=== PATIENT | female | born 1995 | race Caucasian/White ===

== ENCOUNTER 2017-01-09 20:31 | Emergency (ER) | payer OTHER ==
--- NOTE | 2017-01-10 03:47 | ED CLINICAL REPORT ---
Clinical Report - Physicians/Mid Levels [facility] [address] [place] [place] [address] 01/09/2017 20:32 Patient: MIKIE MAKI Time Seen: 09:44. Arrived- By ambulance. Not in custody. Historian- patient and police. HISTORY OF PRESENT ILLNESS Chief Complaint: BEHAVIOR CHANGE and AGITATED, ANGRY and AGGRESSIVE. This started UNKNOWN ONSET. (Ms Maki [facility] She was severely intoxicated and unable to provide responding officers with the name of a responsible sober alliance party who could assume care of the patient.). The patient was found wandering. Recent alcohol consumption. Has exhibited unusual behavior. No delusions, self-injury inflicted or hallucinations. The symptoms are described as severe. No injury is present. REVIEW OF SYSTEMS No chest pain or pain or abdominal pain or pain. No sore throat or throat, difficulty breathing, fever or difficulty breathing. No black stools, bloody stools or head injury. She has had moderate left ear pain. She has had hearing loss (decreased hearing in L ear). PAST HISTORY ( PROBLEMS: Lifestyle / Substance Problems. Abscess. Boarderline diabetic ADDITIONAL SURGERIES: Oral surgery). SOCIAL HISTORY Heavy alcohol use. 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 ADDITIONAL NOTES The nursing notes have been reviewed. PHYSICAL EXAM Vital Signs: 01/10/2017 04:42 BP: 100/49. HR: 65. RR: 16. O2 saturation: 99%. Pain level now: 0. 01/10/2017 01:52 BP: 104/49. HR: 72. RR: 14. O2 saturation: 96%. Pain level now: 0. 01/09/2017 22:25 BP: 128/88. HR: 60. RR: 16. O2 saturation: 97%. Temp: 98.1 F. Pain level now: 0. 01/09/2017 22:23 BP: 99/54. HR: 112. RR: 18. O2 saturation: 98%. Temp: 98.9 F. Appearance: Alert. (Yelling, screaming and thrashing about). Eyes: Pupils equal, round and reactive to light. Neck: Normal inspection. Neck supple. CVS: Heart sounds normal. Respiratory: Chest nontender. Abdomen: Soft and nontender. Back: No tenderness. Skin: Skin warm. Normal skin color. Extremities: Extremities exhibit normal ROM. No lower extremity edema. Psych / Neuro: The patient exhibits altered thought processes. Denies suicidal thoughts. Patient does not express homicidal thoughts. She does not appear to understand hers illness. Cranial nerves normal (as tested). No motor deficit. No sensory deficit. LABS, X-RAYS, AND EKG Laboratory Tests: Urine: (JESSICA: 01/09/2017 20:45) ( [facility] 01/09/2017 21:27) Final results Test Result Flag Units (Reference) URINE NEGATIVE CBC w Diff: (JESSICA: 01/09/2017 22:20) ( [facility] 01/09/2017 22:28) Final results Test Result Flag Units (Reference) WHITE BLOOD COUNT 7.9 K/uL (4.5-11.5) RED BLOOD COUNT 4.40 M/uL (4.00-5.20) HEMOGLOBIN 12.1 gm/dL (12.0-16.0) HEMATOCRIT 37.1 % (36.0-46.0) MEAN CELL VOLUME 84 fL (80-100) MEAN CORPUSCULAR HGB 28 pg (26-34) MEAN CORPUSCULAR HGB CONC 33 g/dL (31-37) RED CELL DISTRIBUTION WIDTH 16.2 H % (11.6-14.8) PLATELET COUNT 292 K/uL (150-400) NEUTROPHIL % 52.4 % (50-75) LYMPH % 38.1 % (25-40) MONO % 5.4 % (3-14) EOSINOPHIL % 3.5 % (0-4) BASOPHIL % 0.6 % (0-2) CMP: (JESSICA: 01/09/2017 22:20) ( [facility] 01/09/2017 22:40) Final results Test Result Flag Units (Reference) GLUCOSE 110 mg/dL (70-110) BUN 4 L mg/dL (7-18) CREATININE 0.5 L mg/dL (0.6-1.3) Estimated GFR >60 mL/min Estimated GFR- >60 mL/min Note: Persistent reduction over 3 months in eGFR<60 mL/min/1.73 m2 defines CKD. Patients with eGFR values>=60 mL/min/1.73 m2 may also have CKD if evidence ofpersistent proteinuria. Additional information may be foundat www.[email or web address].org. SODIUM 147 H mmol/L (136-145) POTASSIUM 3.6 mmol/L (3.5-5.1) CHLORIDE 111 H mmol/L (98-107) CARBON DIOXIDE 21 mmol/L (21-32) CALCIUM 8.5 mg/dL (8.5-10.1) TOTAL PROTEIN 7.4 g/dL (6.4-8.2) ALBUMIN 3.5 g/dL (3.3-5.0) BILIRUBIN, TOTAL 0.3 mg/dL (0.0-1.0) ALKALINE PHOSPHATASE 79 U/L (46-116) AST (SGOT) 15 U/L (15-37) ALT (SGPT) 20 U/L (12-78) CPK 53 U/L (24-260) ETHYL ALCOHOL 206 H mg/dL (3-10) Urine Drug Screen: (JESSICA: 01/09/2017 20:45) ( [facility] 01/09/2017 21:41) Final results Test Result Flag Units (Reference) AMPHETAMINE/METHAMPHETAMINE NEGATIVE (NEGATIVE) BARBITURATE NEGATIVE (NEGATIVE) BENZODIAZEPINE NEGATIVE (NEGATIVE) CANNABINOID POSITIVE H (NEGATIVE) COCAINE NEGATIVE (NEGATIVE) ECSTASY NEGATIVE (NEGATIVE) METHADONE NEGATIVE (NEGATIVE) OPIATE NEGATIVE (NEGATIVE) The urine drug screen is a qualitative screening test fordrug overdose and abuse. All screen results should beconsidered as presumptive.Drugs screened for are as follows:BenzodiazepinesCocaineAmphetamines/MetamphetaminesTHC (Tetrahydrocannabinol)OpiatesBarbituratesEcstasyMethadonePositive results are unconfirmed. For confirmation, notifythe lab for the specimen to be sent to the reference lab.All confirmations must be performed by a differentmethodology.The ingestion of natural herbal and plant productscontaining Ephedra/Ephedra metabolites can produce in urineone or more substances capable of cross reacting withamphetamine/methamphetamine immunoassays. These testsprovide a preliminary result only. A more specificalternative chemical method must be used to obtain aconfirmed analytical result. . PROGRESS AND PROCEDURES Course of Care: Spoke with Officer Jerel by phone. Mikie's wild thrashing make her a danger to herself and staff so she was restrained in 4 point restraints. 21:53 01/09/17. Diagonal restraints removed. Now in two point restraints 23:29 01/09/17. 3RD BEDSIDE VISIT. Restraints removed Now calm and cooperative. Disposition is a problem. Only acute problem identified is severe alcohol intoxication. No acute psychosis or risk to self beyond substance abuse risks. 02:04 01/10/17. RN states, The patient will need to take bus to [place]. We will let her sober until 0600 when the buses begin running. Disposition: Discharged. Condition: stable. CLINICAL IMPRESSION Serous left otitis media. Alcohol intoxication. INSTRUCTIONS (CONSIDER ALCOHOLISM TREATMENT). (Electronically signed by Jake Adams MD 01/11/2017 9:58)
--- NOTE | 2017-01-10 03:47 | ED NURSING NOTES ---
Clinical Report - Nurses [facility] [address] [place] [address] 01/09/2017 20:32 Patient: MIKIE MCKEON TRIAGE Triage time 2031. Acuity: LEVEL 3. Chief Complaint: DIFFICULTY WALKING, CONFUSION and AGITATED / AGGRESSIVE BEHAVIOR. --22:43 Maikel Kc R.N. 22:23 01/09/17. BP: 99/54. HR: 112. RR: 18. O2 saturation: 98% on room air. Temp: 98.9 F (oral). Pain level now unable to obtain due to patient condition: cannot qualify. Additional comments: Pt is unable to verbalize due to hher condition. --22:43 Maikel Kc R.N. Weight: 75 kg estimated. Height/Length: 63 inches Estimated. BMI: 29.3. --22:23 Maikel Kc R.N. Medications None. --22:37 Maikel Kc R.N. (old chart). --22:43 Maikel Kc R.N. Allergies Sulfa Antibiotics. --22:37 Maikel Kc R.N. History Arrived by EMS. Historian: police and EMS. Unaccompanied. Primary physician (none). ( Found by police at local [facility] lying on the ground and they called EMS and transported her to [facility] for intoxication and altered Mental Status.). This started today. Symptoms still present (Pt is unable to verbalize.). Treatment GARMENT FINISHER: None. SOCIAL HX: Alcohol use. ABUSE ASSESSMENT: No report of abuse. NUTRITIONAL RISK ASSESSMENT: The nutritional risk assessment revealed no deficiencies. FALL RISK ASSESSMENT: Fall risk assessment completed. Risk factors identified include patient impairment of mobility and cognition. FUNCTIONAL ASSESSMENT: The functional assessment could not be obtained due to patient condition. LEARNING NEEDS ASSESSMENT: A learning needs assessment was performed. Factors affecting the patient's ability to learn include cognitive limitations. The learning needs assessment could not be obtained due to the patient's condition. SKIN INTEGRITY ASSESSMENT: Skin integrity risk assessment completed. No skin integrity risk identified. --22:43 Maikel Kc R.N. PROBLEMS: Lifestyle / Substance Problems. Abscess. Boarderline diabetic . --22:41 Maikel Kc R.N. ADDITIONAL SURGERIES: Oral surgery . --22:41 Maikel Kc R.N. Interventions ID band on patient. To treatment room. --22:43 Maikel Kc R.N. PHYSICAL ASSESSMENT Ambulatory to room. (with police escort). GENERAL / NEURO / PSYCH: Decreased awareness. The patient is disoriented to person, place and time. She has had weakness. HEENT: No facial asymmetry noted. Mucous membranes are pink. RESPIRATORY: Respirations not labored. CVS: Cardiac rhythm: sinus tachycardia. Capillary refill less than 2 seconds. GI / : Abdomen soft. SKIN: Skin intact. Skin is warm and dry. Normal skin turgor. ( IV track mckeon (scars) on arms). --22:47 Maikel Kc R.N. NURSING PROGRESS NOTES Patient ID band checked for patient name and birthdate urine collected with return of yellow-colored clear urine; sample sent to lab. Specimen labeled in the presence of the patient. No clean catch urine collected. --20:48 Dinora Cramer R.N. 21:15 01/09/17. Geothermal Plant Manager provided for the general exam by the physician. --21:15 Jen Urias R.N. 22:19 oil heat technician with pt for blood draw. --22:21 Maikel Jimenez R.N. 22:25. Patient ID band checked for patient name and birthdate. Blood samples drawn from the right foot with butterfly by nurse ; labeled in presence of the patient and sent to lab: rainbow set and red top. --22:49 Maikel Kc R.N. ( 0150: BRETHALYZER .109). --01:53 Hategekimana, Lory The patient is calm and resting quietly. RESPIRATORY: No respiratory distress. SKIN: Skin is warm and dry. Skin color within normal limits. --01:55 Maikel Jimenez R.N. 01:52 01/10/17. BP: 104/49. HR: 72. RR: 14. O2 saturation: 96% on room air. Pain level now: 0/10. --01:55 Maikel Jimenez R.N. 02:10 Patient to restroom and back to bed. --02:43 Maikel Jimenez R.N. 02:43. The patient is sleeping. RESPIRATORY: No respiratory distress. SKIN: Skin is warm and dry. Skin color within normal limits. --02:43 Maikel Jimenez R.N. 03:18. The patient is sleeping. RESPIRATORY: No respiratory distress. SKIN: Skin color within normal limits. --03:18 Maikel Jimenez R.N. 04:04 Patient given sandwich and apple juice. The patient is calm and resting quietly. RESPIRATORY: No respiratory distress. SKIN: Skin is warm and dry. Skin color within normal limits. --04:28 Maikel Jimenez R.N. 04:28 Patient in room waiting on ride from [employer] --04:28 Maikel Jimenez R.N. 05:26. The patient is calm and resting quietly. RESPIRATORY: No respiratory distress. SKIN: Skin is warm and dry. Skin color within normal limits. --05:30 Maikel Jimenez R.N. Restraint Flowsheet 20:55. Initial restraint assessment. She has demonstrated self-destructive and violent behavior including imminent risk of harm to self or others that requires restraints. Alternatives to restraints have been attempted via patient teaching. Alternative to restraints failed: patient inability to follow directions, remains agitated and displaying a lack of decision making ability. Applied right and left wrist restraints and right and left ankle restraints anchored to the stretcher base. Observed by electronic visual monitor by a nurse and tech. Assessment: airway- patent and respirations are equal and unlabored; mental status- patient is agitated; skin- intact, warm and color is within normal limits; behavior is self destructive and violent. Restraints are properly applied. --21:48 Maikel Jimenez R.N. 20:57 See paper restraint Flowsheet. --22:01 Maikel Jimenez R.N. 00:18. She no longer exhibits behavior requiring restraint and restraints have been removed. --00:59 Maikel Jimenez R.N. DISPOSITION / DISCHARGE 22:25 01/09/17. BP: 128/88. HR: 60. RR: 16. O2 saturation: 97% on room air. Temp: 98.1 F (oral). Pain level now: 0/10. --23:02 Maikel Kc R.N. Departure time: 2229. --23:02 Maikel Kc R.N. ( [facility] called for pt transport home, possible 2hr ETA.). --03:43 Dinora Cramer R.N. Condition at departure: improved and stable. No learning barriers present. Discharge instructions provided and reviewed with the patient. Patient verbalized understanding. Written instructions provided in Taiwanese. The patient was discharged home. She left the Emergency Department ambulatory and via ([facility]). --04:43 Dinora Cramer R.N. 04:42 01/10/17. BP: 100/49. HR: 65. RR: 16 (regular and unlabored). O2 saturation: 99% on room air. Temp: deferred. Pain level now: 0/10. --04:43 Dinora Cramer R.N. ( pt will wait in ED for [facility] transport to arrive.). --04:44 Dinora Cramer R.N. 05:29 Entries at 2225 and 2230 were charted on the wrong pt. --05:29 Maikel Jimenez R.N. Departure time: 05:29. --05:29 Maikel Jimenez R.N. Locked/Released at 01/10/2017 5:30 by Maikel Jimenez R.N.
--- NOTE | 2017-01-10 03:47 | ED ORDER SUMMARY ---
..... Patient: MIKIE MCKEON OrderSheet [facility] VisitID: [id number] [place] [address] 21y, F Registration Date/Time: 01/09/2017 ORDER SHEET Weight: 75 kg (estimated) Allergies: Sulfa Antibiotics GENERAL ORDERS: Urine Drug Screen Urgent (21:01/09/2017 JQuivey R.N. verbal order read back to Hdaley LUCAS) (Ack 22:00 Don) (22:05 JQuivey R.N.) Urine Urgent (:01/09/2017 JQuivey R.N. verbal order read back to Hadley LUCAS) (Ack 22:00 Don) (22:05 JQuivey R.N.) CBC w Diff Urgent (21:01/09/2017 Hadley LUCAS) (Ack 22:00 Don) (22:53 JQuivey R.N.) CMP Urgent (21:01/09/2017 Hadley LUCAS) (Ack 22:00 Don) (22:53 JQuivey R.N.) Ethyl Alcohol Urgent (21:01/09/2017 Hadley LUCAS) (Ack 22:00 Beniimaraudel) (22:53 JQuivey R.N.) CPK Urgent (21:17 01/09/2017 Hadley LUCAS) (Ack 22:00 Don) (22:53 JQuivey R.N.) MEDICATION ORDERS: IV FLUIDS: ORDER SHEET NOTES: [Electronically signed by Maikel Jimenez R.N. (05:30 01/10/2017)] [Electronically signed by Jake Adams MD (09:58 01/11/2017)] [Electronically locked/signed by Maikel Jimenez R.N. (05:30 01/10/2017)]
--- NOTE | 2017-01-10 03:47 | ED ORDER SUMMARY ---
..... Patient: MIKIE MCKEON OrderSheet [facility] VisitID: [id number] [place] [address] 21y, F Registration Date/Time: 01/09/2017 ORDER SHEET Weight: 75 kg (estimated) Allergies: Sulfa Antibiotics GENERAL ORDERS: Urine Drug Screen Urgent (21:01/09/2017 JQuivey R.N. verbal order read back to Hadley LUCAS) (Ack 22:00 Don) (22:05 JQuivey R.N.) Urine Urgent (:01/09/2017 JQuivey R.N. verbal order read back to Hadley LUCAS) (Ack 22:00 Don) (22:05 JQuivey R.N.) CBC w Diff Urgent (21:01/09/2017 Hadley LUCAS) (Ack 22:00 Don) (22:53 JQuivey R.N.) CMP Urgent (21:01/09/2017 Hadley LUCAS) (Ack 22:00 Don) (22:53 JQuivey R.N.) Ethyl Alcohol Urgent (21:01/09/2017 Hadley LUCAS) (Ack 22:00 Beniimaraudel) (22:53 JQuivey R.N.) CPK Urgent (21:17 01/09/2017 Hadley LUCAS) (Ack 22:00 Don) (22:53 JQuivey R.N.) MEDICATION ORDERS: IV FLUIDS: ORDER SHEET NOTES: [Electronically signed by Maikel Jimenez R.N. (05:30 01/10/2017)] [Electronically signed by Jake Adams MD (09:58 01/11/2017)] [Electronically locked/signed by Maikel Jimenez R.N. (05:30 01/10/2017)]
--- NOTE | 2017-01-10 03:47 | ED NURSING NOTES ---
Clinical Report - Nurses [facility] [address] [place] [address] 01/09/2017 20:32 Patient: MIKIE MCKEON TRIAGE Triage time 2031. Acuity: LEVEL 3. Chief Complaint: DIFFICULTY WALKING, CONFUSION and AGITATED / AGGRESSIVE BEHAVIOR. --22:43 Maikel Kc R.N. 22:23 01/09/17. BP: 99/54. HR: 112. RR: 18. O2 saturation: 98% on room air. Temp: 98.9 F (oral). Pain level now unable to obtain due to patient condition: cannot qualify. Additional comments: Pt is unable to verbalize due to hher condition. --22:43 Maikel Kc R.N. Weight: 75 kg estimated. Height/Length: 63 inches Estimated. BMI: 29.3. --22:23 Maikel Kc R.N. Medications None. --22:37 Maikel Kc R.N. (old chart). --22:43 Maikel Kc R.N. Allergies Sulfa Antibiotics. --22:37 Maikel Kc R.N. History Arrived by EMS. Historian: police and EMS. Unaccompanied. Primary physician (none). ( Found by police at local [facility] lying on the ground and they called EMS and transported her to [facility] for intoxication and altered Mental Status.). This started today. Symptoms still present (Pt is unable to verbalize.). Treatment TARIFF COMPILING CLERK: None. SOCIAL HX: Alcohol use. ABUSE ASSESSMENT: No report of abuse. NUTRITIONAL RISK ASSESSMENT: The nutritional risk assessment revealed no deficiencies. FALL RISK ASSESSMENT: Fall risk assessment completed. Risk factors identified include patient impairment of mobility and cognition. FUNCTIONAL ASSESSMENT: The functional assessment could not be obtained due to patient condition. LEARNING NEEDS ASSESSMENT: A learning needs assessment was performed. Factors affecting the patient's ability to learn include cognitive limitations. The learning needs assessment could not be obtained due to the patient's condition. SKIN INTEGRITY ASSESSMENT: Skin integrity risk assessment completed. No skin integrity risk identified. --22:43 Maikel Kc R.N. PROBLEMS: Lifestyle / Substance Problems. Abscess. Boarderline diabetic . --22:41 Maikel Kc R.N. ADDITIONAL SURGERIES: Oral surgery . --22:41 Maikel Kc R.N. Interventions ID band on patient. To treatment room. --22:43 Maikel Kc R.N. PHYSICAL ASSESSMENT Ambulatory to room. (with police escort). GENERAL / NEURO / PSYCH: Decreased awareness. The patient is disoriented to person, place and time. She has had weakness. HEENT: No facial asymmetry noted. Mucous membranes are pink. RESPIRATORY: Respirations not labored. CVS: Cardiac rhythm: sinus tachycardia. Capillary refill less than 2 seconds. GI / : Abdomen soft. SKIN: Skin intact. Skin is warm and dry. Normal skin turgor. ( IV track mckeon (scars) on arms). --22:47 Maikel Kc R.N. NURSING PROGRESS NOTES Patient ID band checked for patient name and birthdate urine collected with return of yellow-colored clear urine; sample sent to lab. Specimen labeled in the presence of the patient. No clean catch urine collected. --20:48 Dinora Cramer R.N. 21:15 01/09/17. Hemp Fiber Taker Off provided for the general exam by the physician. --21:15 Jen Urias R.N. 22:19 color technician with pt for blood draw. --22:21 Maikel Jimenez R.N. 22:25. Patient ID band checked for patient name and birthdate. Blood samples drawn from the right foot with butterfly by nurse ; labeled in presence of the patient and sent to lab: rainbow set and red top. --22:49 Maikel Kc R.N. ( 0150: BRETHALYZER .109). --01:53 Hategekimana, Lory The patient is calm and resting quietly. RESPIRATORY: No respiratory distress. SKIN: Skin is warm and dry. Skin color within normal limits. --01:55 Maikel Jimenez R.N. 01:52 01/10/17. BP: 104/49. HR: 72. RR: 14. O2 saturation: 96% on room air. Pain level now: 0/10. --01:55 Maikel Jimenez R.N. 02:10 Patient to restroom and back to bed. --02:43 Maikel Jimenez R.N. 02:43. The patient is sleeping. RESPIRATORY: No respiratory distress. SKIN: Skin is warm and dry. Skin color within normal limits. --02:43 Maikel Jimenez R.N. 03:18. The patient is sleeping. RESPIRATORY: No respiratory distress. SKIN: Skin color within normal limits. --03:18 Maikel Jimenez R.N. 04:04 Patient given sandwich and apple juice. The patient is calm and resting quietly. RESPIRATORY: No respiratory distress. SKIN: Skin is warm and dry. Skin color within normal limits. --04:28 Maikel Jimenez R.N. 04:28 Patient in room waiting on ride from [employer]. --04:28 Maikel Jimenez R.N. 05:26. The patient is calm and resting quietly. RESPIRATORY: No respiratory distress. SKIN: Skin is warm and dry. Skin color within normal limits. --05:30 Maikel Jimenez R.N. Restraint Flowsheet 20:55. Initial restraint assessment. She has demonstrated self-destructive and violent behavior including imminent risk of harm to self or others that requires restraints. Alternatives to restraints have been attempted via patient teaching. Alternative to restraints failed: patient inability to follow directions, remains agitated and displaying a lack of decision making ability. Applied right and left wrist restraints and right and left ankle restraints anchored to the stretcher base. Observed by electronic visual monitor by a nurse and tech. Assessment: airway- patent and respirations are equal and unlabored; mental status- patient is agitated; skin- intact, warm and color is within normal limits; behavior is self destructive and violent. Restraints are properly applied. --21:48 Maikel Jimenez R.N. 20:57 See paper restraint Flowsheet. --22:01 Maikel Jimenez R.N. 00:18. She no longer exhibits behavior requiring restraint and restraints have been removed. --00:59 Maikel Jimenez R.N. DISPOSITION / DISCHARGE 22:25 01/09/17. BP: 128/88. HR: 60. RR: 16. O2 saturation: 97% on room air. Temp: 98.1 F (oral). Pain level now: 0/10. --23:02 Maikel Kc R.N. Departure time: 2229. --23:02 Maikel Kc R.N. ( [facility] called for pt transport home, possible 2hr ETA.). --03:43 Dinora Cramer R.N. Condition at departure: improved and stable. No learning barriers present. Discharge instructions provided and reviewed with the patient. Patient verbalized understanding. Written instructions provided in Jamaican. The patient was discharged home. She left the Emergency Department ambulatory and via ([facility]). --04:43 Dinora Cramer R.N. 04:42 01/10/17. BP: 100/49. HR: 65. RR: 16 (regular and unlabored). O2 saturation: 99% on room air. Temp: deferred. Pain level now: 0/10. --04:43 Dinora Cramer R.N. ( pt will wait in ED for [facility] transport to arrive.). --04:44 Dinora Cramer R.N. 05:29 Entries at 2225 and 2230 were charted on the wrong pt. --05:29 Maikel Jimenez R.N. Departure time: 05:29. --05:29 Maikel Jimenez R.N. Locked/Released at 01/10/2017 5:30 by Maikel Jimenez R.N.
--- NOTE | 2017-01-10 03:47 | ED CLINICAL REPORT ---
Clinical Report - Physicians/Mid Levels [facility] [address] [place] [address] 01/09/2017 20:32 Patient: MIKIE MAKI Time Seen: 09:44. Arrived- By ambulance. Not in custody. Historian- patient and police. HISTORY OF PRESENT ILLNESS Chief Complaint: BEHAVIOR CHANGE and AGITATED, ANGRY and AGGRESSIVE. This started UNKNOWN ONSET. (Ms Maki was found [facility] light [facility] She was severely intoxicated and unable to provide responding officers with the name of a responsible sober constitution party who could assume care of the patient.). The patient was found wandering. Recent alcohol consumption. Has exhibited unusual behavior. No delusions, self-injury inflicted or hallucinations. The symptoms are described as severe. No injury is present. REVIEW OF SYSTEMS No chest pain or pain or abdominal pain or pain. No sore throat or throat, difficulty breathing, fever or difficulty breathing. No black stools, bloody stools or head injury. She has had moderate left ear pain. She has had hearing loss (decreased hearing in L ear). PAST HISTORY ( PROBLEMS: Lifestyle / Substance Problems. Abscess. Boarderline diabetic ADDITIONAL SURGERIES: Oral surgery). SOCIAL HISTORY Heavy alcohol use. 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 ADDITIONAL NOTES The nursing notes have been reviewed. PHYSICAL EXAM Vital Signs: 01/10/2017 04:42 BP: 100/49. HR: 65. RR: 16. O2 saturation: 99%. Pain level now: 0. 01/10/2017 01:52 BP: 104/49. HR: 72. RR: 14. O2 saturation: 96%. Pain level now: 0. 01/09/2017 22:25 BP: 128/88. HR: 60. RR: 16. O2 saturation: 97%. Temp: 98.1 F. Pain level now: 0. 01/09/2017 22:23 BP: 99/54. HR: 112. RR: 18. O2 saturation: 98%. Temp: 98.9 F. Appearance: Alert. (Yelling, screaming and thrashing about). Eyes: Pupils equal, round and reactive to light. Neck: Normal inspection. Neck supple. CVS: Heart sounds normal. Respiratory: Chest nontender. Abdomen: Soft and nontender. Back: No tenderness. Skin: Skin warm. Normal skin color. Extremities: Extremities exhibit normal ROM. No lower extremity edema. Psych / Neuro: The patient exhibits altered thought processes. Denies suicidal thoughts. Patient does not express homicidal thoughts. She does not appear to understand hers illness. Cranial nerves normal (as tested). No motor deficit. No sensory deficit. LABS, X-RAYS, AND EKG Laboratory Tests: Urine: (JESSICA: 01/09/2017 20:45) ( [facility] 01/09/2017 21:27) Final results Test Result Flag Units (Reference) URINE NEGATIVE CBC w Diff: (JESSICA: 01/09/2017 22:20) ( [facility] 01/09/2017 22:28) Final results Test Result Flag Units (Reference) WHITE BLOOD COUNT 7.9 K/uL (4.5-11.5) RED BLOOD COUNT 4.40 M/uL (4.00-5.20) HEMOGLOBIN 12.1 gm/dL (12.0-16.0) HEMATOCRIT 37.1 % (36.0-46.0) MEAN CELL VOLUME 84 fL (80-100) MEAN CORPUSCULAR HGB 28 pg (26-34) MEAN CORPUSCULAR HGB CONC 33 g/dL (31-37) RED CELL DISTRIBUTION WIDTH 16.2 H % (11.6-14.8) PLATELET COUNT 292 K/uL (150-400) NEUTROPHIL % 52.4 % (50-75) LYMPH % 38.1 % (25-40) MONO % 5.4 % (3-14) EOSINOPHIL % 3.5 % (0-4) BASOPHIL % 0.6 % (0-2) CMP: (JESSICA: 01/09/2017 22:20) ( [facility] 01/09/2017 22:40) Final results Test Result Flag Units (Reference) GLUCOSE 110 mg/dL (70-110) BUN 4 L mg/dL (7-18) CREATININE 0.5 L mg/dL (0.6-1.3) Estimated GFR >60 mL/min Estimated GFR- >60 mL/min Note: Persistent reduction over 3 months in eGFR<60 mL/min/1.73 m2 defines CKD. Patients with eGFR values>=60 mL/min/1.73 m2 may also have CKD if evidence ofpersistent proteinuria. Additional information may be foundat www.kidney.org. SODIUM 147 H mmol/L (136-145) POTASSIUM 3.6 mmol/L (3.5-5.1) CHLORIDE 111 H mmol/L (98-107) CARBON DIOXIDE 21 mmol/L (21-32) CALCIUM 8.5 mg/dL (8.5-10.1) TOTAL PROTEIN 7.4 g/dL (6.4-8.2) ALBUMIN 3.5 g/dL (3.3-5.0) BILIRUBIN, TOTAL 0.3 mg/dL (0.0-1.0) ALKALINE PHOSPHATASE 79 U/L (46-116) AST (SGOT) 15 U/L (15-37) ALT (SGPT) 20 U/L (12-78) CPK 53 U/L (24-260) ETHYL ALCOHOL 206 H mg/dL (3-10) Urine Drug Screen: (JESSICA: 01/09/2017 20:45) ( [facility] 01/09/2017 21:41) Final results Test Result Flag Units (Reference) AMPHETAMINE/METHAMPHETAMINE NEGATIVE (NEGATIVE) BARBITURATE NEGATIVE (NEGATIVE) BENZODIAZEPINE NEGATIVE (NEGATIVE) CANNABINOID POSITIVE H (NEGATIVE) COCAINE NEGATIVE (NEGATIVE) ECSTASY NEGATIVE (NEGATIVE) METHADONE NEGATIVE (NEGATIVE) OPIATE NEGATIVE (NEGATIVE) The urine drug screen is a qualitative screening test fordrug overdose and abuse. All screen results should beconsidered as presumptive.Drugs screened for are as follows:BenzodiazepinesCocaineAmphetamines/MetamphetaminesTHC (Tetrahydrocannabinol)OpiatesBarbituratesEcstasyMethadonePositive results are unconfirmed. For confirmation, notifythe lab for the specimen to be sent to the reference lab.All confirmations must be performed by a differentmethodology.The ingestion of natural herbal and plant productscontaining Ephedra/Ephedra metabolites can produce in urineone or more substances capable of cross reacting withamphetamine/methamphetamine immunoassays. These testsprovide a preliminary result only. A more specificalternative chemical method must be used to obtain aconfirmed analytical result. . PROGRESS AND PROCEDURES Course of Care: Spoke with Officer Jerel by phone. Mikie's wild thrashing make her a danger to herself and staff so she was restrained in 4 point restraints. 21:53 01/09/17. Diagonal restraints removed. Now in two point restraints 23:29 01/09/17. 3RD BEDSIDE VISIT. Restraints removed Now calm and cooperative. Disposition is a problem. Only acute problem identified is severe alcohol intoxication. No acute psychosis or risk to self beyond substance abuse risks. 02:04 01/10/17. RN states, The patient will need to take bus to [place]. We will let her sober until 0600 when the buses begin running. Disposition: Discharged. Condition: stable. CLINICAL IMPRESSION Serous left otitis media. Alcohol intoxication. INSTRUCTIONS (CONSIDER ALCOHOLISM TREATMENT). (Electronically signed by Jake Adams MD 01/11/2017 9:58)
--- NOTE | 2017-01-11 09:58 | ED MAR SUMMARY ---
..... Medication Administration Record [facility] [address] [place], [place] [id number] Patient: MIKIE MCKEON Visit ID: [id number] 21y, F Weight: 75.0 kg Height/Length: 63 in BMI: 29.3 ALLERGIES: Sulfa Antibiotics
--- NOTE | 2017-01-11 09:58 | ED MED RECONCILIATION SUMMARY ---
Patient: MIKIE MCKEON Medication Reconciliation Report [facility] VisitID: [id number] [address] [place] [place] [address] 21y, F Registration Date/Time: 01/09/2017 Weight: 75 kg Height/Length: 63 in. BMI: 29.3 ALLERGIES: Sulfa Antibiotics The patient's Home Medications are listed below: NONE. The source(s) of the original Home Medication information: old chart The following Medications were given to the patient in the Emergency Department: None. The following Medications were prescribed to the patient: None.
--- NOTE | 2017-01-11 09:58 | ED DISCHARGE INSTRUCTIONS ---
Patient: MIKIE MCKEON General Instructions [facility] VisitID: [id number] [place] [address] 21y, F Registration Date/Time: 01/09/2017 Serous left otitis media. Alcohol intoxication. INSTRUCTIONS (CONSIDER ALCOHOLISM TREATMENT). ADDITIONAL INFORMATION Alcohol Intoxication Alcohol intoxication occurs when you drink alcohol faster than your liver can remove it from your system. Alcohol intoxication affects your judgment and coordination. Very high blood alcohol levels can cause coma, very slow breathing and even . If you drink alcohol every day, this may gradually cause permanent damage to your liver, brain, heart, pancreas and other organs. Alcohol use during may cause permanent damage to the growing baby. Home Care: Do not drink any more alcohol. DO NOT DRIVE until all effects of the alcohol have worn off. Get lots of rest over the next few days. Drink plenty of water and other non-alcoholic liquids. Try to eat regular meals. If you have been drinking heavily on a daily basis, you may go through alcohol withdrawl. This is also called the shakes or DTs. The usual symptoms last 3 to 4 days and may include nervousness, shakiness, nausea, sweating or sleeplessness. During this time, it is best that you stay with family or friends who can help and support you. You can also admit yourself to a residential detox program. If your symptoms are severe, contact your doctor for medicines to help. Follow Up: If alcohol is causing a problem in your life, these and other organizations can help you: Alcoholics Anonymous offers support through a self-help fellowship. There are no dues or fees. See the Yellow Pages and call for time and place of meetings. www.aa.org Al-Anon offers support to families of alcohol users. 340.576.1899 www.al-anon.org National [place] On Alcoholism And Drug Dependence 696-240-7140 www.ncadd.org There are also inpatient or residential alcohol detox programs. Check the Internet or phonebook Yellow Pages under Drug Abuse & Treatment Centers. Get Prompt Medical Attention if any of the following occur: there) Fluid In The Middle Ear, No Infection (Adult) Earaches can happen without an infection. This can occur when air and fluid build up behind the eardrum causing pain and reduced hearing. This is called when you have a cold if congestion blocks the passage that drains the middle ear (eustachian tube). It may also occur with nasal allergies, gastric acid reflux (GERD), or after a bacterial middle ear infection. The pain may come and go. You may hear clicking or popping sounds when chewing or swallowing. You may feel that your balance is off. Or you may hear ringing in the ear. It often takes from several weeks up to three months for the fluid to clear on its own. Oral pain relievers and ear drops help with pain. Decongestants and antihistamines sometimes help. This condition does not respond to antibiotics since there is no infection. Your doctor may prescribe a nasal spray to help reduce swelling in the nose and eustachian tube. This can allow the ear to drain. If there has been no improvement after three months, surgery may be used to drain the fluid and insert a small tube in the eardrum to permit continued drainage. Because the middle ear fluid can become infected, it is important to watch for signs of an ear infection which may develop later. These signs include ear pain, fever, or drainage from the ear. Home Care: You may use acetaminophen (Tylenol) or ibuprofen (Motrin, Advil) to control pain, unless another medicine was prescribed. [NOTE: If you have chronic liver or kidney disease or ever had a stomach ulcer or GI bleeding, talk with your doctor before using these medicines.] (Aspirin should never be used in anyone under 18 years of age who is ill with a fever. It may cause severe liver damage.) You may use xeoa-jbi-pszesyt decongestants such as pseudoephedrine (Sudafed). You may use medications such as guaifenesin (Mucinex) to thin mucus and promote drainage. Follow Up with your doctor or as advised if you are not feeling better after three days. Get Prompt Medical Attention if any of the following occur: Ear pain gets worse or does not start to improve after three days of treatment Fever of 100.4F (38C) or higher, or as directed by your healthcare provider Fluid or blood draining from the ear Headache or sinus pain Stiff neck Unusual drowsiness or confusion You have been given the following additional information: Alcohol Intoxication Earache W/O Infection (Adult) (Electronically signed by Jake Adams MD 01/11/2017 9:58)
--- NOTE | 2017-01-11 09:58 | ED MED RECONCILIATION SUMMARY ---
Patient: MIKIE MCKEON Medication Reconciliation Report [facility] VisitID: [id number] [address] [place] [address] 21y, F Registration Date/Time: 01/09/2017 Weight: 75 kg Height/Length: 63 in. BMI: 29.3 ALLERGIES: Sulfa Antibiotics The patient's Home Medications are listed below: NONE. The source(s) of the original Home Medication information: old chart The following Medications were given to the patient in the Emergency Department: None. The following Medications were prescribed to the patient: None.
--- NOTE | 2017-01-11 09:58 | ED DISCHARGE INSTRUCTIONS ---
Patient: MIKIE MCKEON General Instructions VisitID: [id number] [place] [address] 21y, F Registration Date/Time: 01/09/2017 Serous left otitis media. Alcohol intoxication. INSTRUCTIONS (CONSIDER ALCOHOLISM TREATMENT). ADDITIONAL INFORMATION Alcohol Intoxication Alcohol intoxication occurs when you drink alcohol faster than your liver can remove it from your system. Alcohol intoxication affects your judgment and coordination. Very high blood alcohol levels can cause coma, very slow breathing and even . If you drink alcohol every day, this may gradually cause permanent damage to your liver, brain, heart, pancreas and other organs. Alcohol use during may cause permanent damage to the growing baby. Home Care: Do not drink any more alcohol. DO NOT DRIVE until all effects of the alcohol have worn off. Get lots of rest over the next few days. Drink plenty of water and other non-alcoholic liquids. Try to eat regular meals. If you have been drinking heavily on a daily basis, you may go through alcohol withdrawl. This is also called the shakes or DTs. The usual symptoms last 3 to 4 days and may include nervousness, shakiness, nausea, sweating or sleeplessness. During this time, it is best that you stay with family or friends who can help and support you. You can also admit yourself to a residential detox program. If your symptoms are severe, contact your doctor for medicines to help. Follow Up: If alcohol is causing a problem in your life, these and other organizations can help you: Alcoholics Anonymous offers support through a self-help fellowship. There are no dues or fees. See the Yellow Pages and call for time and place of meetings. www.aa.org Al-Anon offers support to families of alcohol users. 339.229.9804 www.al-anon.org National [place] On Alcoholism And Drug Dependence 206-041-9897 www.ncadd.org There are also inpatient or residential alcohol detox programs. Check the Internet or phonebook Yellow Pages under Drug Abuse & Treatment Centers. Get Prompt Medical Attention if any of the following occur: there) Fluid In The Middle Ear, No Infection (Adult) Earaches can happen without an infection. This can occur when air and fluid build up behind the eardrum causing pain and reduced hearing. This is called when you have a cold if congestion blocks the passage that drains the middle ear (eustachian tube). It may also occur with nasal allergies, gastric acid reflux (GERD), or after a bacterial middle ear infection. The pain may come and go. You may hear clicking or popping sounds when chewing or swallowing. You may feel that your balance is off. Or you may hear ringing in the ear. It often takes from several weeks up to three months for the fluid to clear on its own. Oral pain relievers and ear drops help with pain. Decongestants and antihistamines sometimes help. This condition does not respond to antibiotics since there is no infection. Your doctor may prescribe a nasal spray to help reduce swelling in the nose and eustachian tube. This can allow the ear to drain. If there has been no improvement after three months, surgery may be used to drain the fluid and insert a small tube in the eardrum to permit continued drainage. Because the middle ear fluid can become infected, it is important to watch for signs of an ear infection which may develop later. These signs include ear pain, fever, or drainage from the ear. Home Care: You may use acetaminophen (Tylenol) or ibuprofen (Motrin, Advil) to control pain, unless another medicine was prescribed. [NOTE: If you have chronic liver or kidney disease or ever had a stomach ulcer or GI bleeding, talk with your doctor before using these medicines.] (Aspirin should never be used in anyone under 18 years of age who is ill with a fever. It may cause severe liver damage.) You may use vwfb-hif-azynglf decongestants such as pseudoephedrine (Sudafed). You may use medications such as guaifenesin (Mucinex) to thin mucus and promote drainage. Follow Up with your doctor or as advised if you are not feeling better after three days. Get Prompt Medical Attention if any of the following occur: Ear pain gets worse or does not start to improve after three days of treatment Fever of 100.4F (38C) or higher, or as directed by your healthcare provider Fluid or blood draining from the ear Headache or sinus pain Stiff neck Unusual drowsiness or confusion You have been given the following additional information: Alcohol Intoxication Earache W/O Infection (Adult) (Electronically signed by Jake Adams MD 01/11/2017 9:58)
--- NOTE | 2017-01-11 09:58 | ED MAR SUMMARY ---
..... Medication Administration Record [facility] [address] [place], [place] [id number] Patient: MIKIE MCKEON Visit ID: [id number] 21y, F Weight: 75.0 kg Height/Length: 63 in BMI: 29.3 ALLERGIES: Sulfa Antibiotics
== END 2017-01-10 04:42 | disposition home or self-care (01) ==
LOC: ED SRH 20:31
DX: F10.129 Alcohol abuse with intoxication, unspecified (principal); H65.02 Acute serous otitis media, left ear
CPT/HCPCS: 90074; 90100; 92010; 92610; 92760; 92761; 92762; 92763; 92764; 92765; 92766; 92767; 93070; 95059